=== PATIENT | male | born 1985 | race African-American/Black ===

== ENCOUNTER 2020-11-04 08:15 | Emergency (ER) | payer OTHER ==
[~2020-11-04] VITALS: Ht 180.3 cm; Wt 87.0 kg
[2020-11-04 08:48] VITALS: BP 142/88
[2020-11-04] MEDS: IBUPROFEN 600MG TABLET PO ONE (08:48)
== END 2020-11-04 09:45 | disposition home or self-care (01) ==
LOC: ER 08:15
DX: M25.572 Pain in left ankle and joints of left foot (principal); R03.0 Elevated blood-pressure reading, without diagnosis of hypertension
CPT/HCPCS: 73610; 99283